=== PATIENT | male | born 1970 | race Caucasian/White ===

== ENCOUNTER 2022-11-06 00:14 | Emergency (ER) | payer OTHER, SELFPAY ==
[2022-11-06 00:16] VITALS: BP 144/77; PULSE 50; RESP 16; TEMP 36.6; O2SAT 99; BMI 24.7
--- NOTE | 2022-11-06 00:38 | EX.ED.VIS.PS ---
HPI HPI - Psych History of Present Illness Chief Complaint: Suicidal Informant: patient Narrative Narrative: Patient states he and his have been struggling with her relationship for years, it came to ahead tonight when she was pushing my buttons and he became very angry and his temper flared, and he said things that he regrets. Some of those things were that he was suicidal and was going to shoot himself, but he states he did not mean that, and he said that out of anger. He has not been drinking. He uses THC on occasion, no other drugs. He states he has had thoughts of self-harm in the past, and he wants to talk to a counselor, he is currently not seeing anyone. He said that his son sent him to the hospital [facility] to get checked in for 3 days to get away from people in his family temporarily, and he was going to have his do the same and then afterwards they would undergo couples counseling and the patient states I am doing what I was told and I am trying to do the right thing. PFSH PFSH Medical History no medical history no medical history Home Medications NK 11/06/22 [History Last Taken Unknown] Allergy/AdvReac Type Severity Reaction Status Date / Time No Known Allergies Allergy Unverified 10/21/21 09:56 Social History Smoking Status: Current every day smoker tobacco type: cigarettes ROS ROS ED Constitutional Constitutional ED: Denies chills or fever(s) Eyes Eyes: Denies change in vision or diplopia ENT ENT ED: Denies rhinorrhea or sore throat Cardiovascular Cardiovascular: Denies chest pain or palpitations Respiratory/Chest Respiratory/Chest: Denies cough or dyspnea Gastrointestinal Gastrointestinal: Denies abdominal pain, diarrhea, nausea or vomiting Genitourinary Genitourinary ED: Denies dysuria or hematuria Musculoskeletal Musculoskeletal: Denies back pain or neck pain Integumentary Denies abscess or rash Neurologic Neurologic: Denies headache(s), paresthesias or weakness Psychiatric Psychiatric: Reports depression and suicidal thoughts; Denies homicidal ideation or suicidal ideation EXAM Physical Exam Const Vital Signs: 11/06/22 00:16 Temperature 97.9 F Temperature Source Temporal Pulse Rate 50 L Respiratory Rate 16 Blood Pressure 144/77 H Blood Pressure Mean 99 Pulse Ox 99 Oxygen Delivery Method Room Air Positive well nourished and well developed General Appearance ED: well developed and NAD HEENT Reports moist mucous membranes normocephalic and atraumatic Eyes PERRL and EOMs intact bilaterally General Eye ED: Negative for scleral icterus Neck no lymphadenopathy and supple Resp normal respiratory effort and clear to auscultation bilaterally Cardio no murmurs Rate: regular rate Rhythm: regular rhythm GI non-tender and non-distended Auscultation: normoactive bowel sounds Palpation: soft Back/Spine no CVA tenderness and normal ROM Extremity normal to inspection General Extremety ED: Negative for edema General Extremity: Negative for edema Neuro oriented x3, CN's II-XII intact bilaterally, no sensory deficits noted and gait normal Sensorium / Orientation: alert Motor Exam: strength 5/5 throughout Psych mental status grossly normal, thought process normal, cooperative, affect normal, speech normal, activity/motor behavior normal, denies hallucinations, denies homicidal ideation and denies suicidal ideation Appearance: grossly normal, appropriate and well kempt Attitude: calm and engaged Activity / Motor Behavior: appropriate eye contact Speech: normal speech Thought Content: normal thought content Skin Lesions: no lesions Rashes: no rashes MDM MDM MDM Narrative Medical decision making narrative: Labs and toxicology obtained and reviewed. He is medically cleared, will refer to crisis for further evaluation and disposition. Crisis saw and evaluated the patient. They and the patient both are in agreement with safety plan and close outpatient follow-up with counseling. I agree with this plan. Lab Data Attestation: I reviewed the patient's lab results. Labs: Laboratory Results - last 24 hr 11/06/22 11/06/22 00:45 01:05 WBC 5.3 RBC 4.16 L Hgb 12.9 L Hct 40.3 MCV 96.9 H MCH 31.0 MCHC 32.0 RDW Std Deviation 47.2 H RDW Coeff of Danni 13.2 Plt Count 195 MPV 9.8 Immature Gran % (Auto) 0.200 Neut % (Auto) 43.2 L Lymph % (Auto) 40.1 [place] % (Auto) 10.5 H Eos % (Auto) 4.9 Baso % (Auto) 1.1 H Absolute Neuts (auto) 2.3 Absolute Lymphs (auto) 2.14 Nucleated RBC % 0 Sodium 140 Potassium 3.6 Chloride 107 Carbon Dioxide 30.0 Anion Gap 3 L BUN 22 H Creatinine 1.09 Estim Creat Clear Calc 93.67 Est GFR (MDRD) Af Amer 91 Est GFR (MDRD) Non-Af 75 BUN/Creatinine Ratio 20.2 H Glucose 95 Calcium 8.6 Urine Opiates Screen NEGATIVE Urine Methadone Screen NEGATIVE Ur Barbiturates Screen NEGATIVE Ur Phencyclidine Scrn NEGATIVE Ur Amphetamines Screen NEGATIVE MDMA (Ecstasy) Screen NEGATIVE U Benzodiazepines Scrn NEGATIVE Urine Cocaine Screen NEGATIVE U Cannabinoids Screen POSITIVE H Ur Drug Screen Comment Ethyl Alcohol < 3.0 Management Discussion w/another healthcare provider: concession worker/Case management Discharge Plan Triage Chief Complaint: Suicidal ED Provider: Jemal Real Dx/Rx/DC Orders Clinical Impression: Suicidal thoughts, Acute reaction to situational stress Instructions: Responding Better to Stress, CONTRACT, No Harm, ED Depression Prescriptions: No Action NK Primary Care Provider: Care Physician,No Primary Referrals: Counseling,Center [Group of Physicians] - (as directed) Deepak Burgess DO [Med Staff - Trustee Of Estate] - Disposition Disposition: Home, Self Care
[2022-11-06 00:51] LABS: Absolute Lymphocyte Count 2.14 X10^3/uL (0.83-4.51); Absolute Neutrophil Count 2.3 X10^3/uL (2.0-7.7); Basophil# 0.06 X10^3/uL; Basophil% 1.1 % (0-1); Eosinophil# 0.26 X10^3/uL; Eosinophils% 4.9 % (0-5); Hematocrit 40.3 % (40-54); Hemoglobin 12.9 g/dL (13.0-16.5); Lymphocyte # 2.14 X10^3/ul (0.83-4.51); Lymphocyte % 40.1 % (19-41); Mean Corpuscular Volume 96.9 fL (80-94); Mean Platelet Vol. 9.8 fl (6.2-12.0); Monocyte# 0.56 X10^3/uL; Monocyte% 10.5 % (0-10); NRBC Flagged by Analyzer 0 % (0-5); Neutrophil # 2.31 X10^3/uL (2.7-7.7); Neutrophil % 43.2 % (47-70); Platelet Count 195 K/mm3 (150-450); RBC Distribution Width CV 13.2 % (11.6-14.6); RBC Distribution Width SD 47.2 fl (35.1-43.9); Red Blood Count 4.16 M/mm3 (4.6-6.2); White Blood Count 5.3 K/mm3 (4.4-11.0)
--- NOTE | 2022-11-06 00:54 | ED.RN ---
Per Dr Real patient is low risk and no plan therefore does not require a sitter at this time.
[2022-11-06 01:06] LABS: Anion Gap 3 (5-15); BUN 22 mg/dL (7-18); BUN/Creat Ratio 20.2 RATIO (10-20); Calcium,Total 8.6 mg/dL (8.5-10.1); Chloride 107 mmol/L (98-107); Creatinine, Serum 1.09 mg/dL (0.70-1.30); EST Glomerular Filtration Rate 75 mL/min (>60); Est Glom Filt Rate - Afr Amer 91 mL/min (>60); Estimated Creatinine Clearance 93.67 ml/min; Glucose 95 mg/dL (74-106); Potassium 3.6 mmol/L (3.5-5.1); Sodium Level 140 mmol/L (136-145)
[2022-11-06 01:13] LABS: Alcohol, Blood (Medical)-Serum < 3.0 mg/dL
[2022-11-06 02:03] LABS: Amphetamine Urine VISTA NEGATIVE (<1000 ng/mL); Barbiturate Urine VISTA NEGATIVE (< 200 ng/mL); Benzodiazepine Urine VISTA NEGATIVE (< 200 ng/mL); Cocaine Urine VISTA NEGATIVE (< 300 ng/mL); Ecstacy Urine VISTA NEGATIVE (< 500 ng/mL); Methadone Urine VISTA NEGATIVE (< 300 ng/mL); PCP Urine VISTA NEGATIVE (< 25 ng/mL); THC Urine VISTA POSITIVE (< 50 ng/mL); Vista UDS pH Range 7
[2022-11-06 03:06] VITALS: BP 138/67; PULSE 60; RESP 18
--- NOTE | 2022-11-06 03:07 | ED.RN ---
PT ANGRY THAT HE IS GETTING DISCHARGED AT 0300.INFORMED PT THAT IF HE WANTED TO SLEEP UNTIL 7 AM AND THEN HE CAN TRY TO FIND A RIDE AND USE THE PHONE IN THE WAITING ROOM.PT FINE WITH THAT.
== END 2022-11-06 03:09 | disposition home or self-care (01) ==
PROVIDERS: Emergency Provider Emergency Medicine; Visit Provider Emergency Medicine
DX: F43.0 Acute stress reaction (principal); R45.851 Suicidal ideations; F17.210 Nicotine dependence, cigarettes, uncomplicated
CPT/HCPCS: 80048; 80307; 82077; 85025; 99283